=== PATIENT | male | born 1960 | race Caucasian/White ===

== ENCOUNTER 2018-08-07 18:41 | Inpatient (IN) | payer OTHER ==
[~2018-08-07] VITALS: Ht 167.6 cm; Wt 139.4 kg
[2018-08-07 19:29] LABS: BASOPHIL % 0.2 % (0-2)
[2018-08-07 19:30] LABS: RED CELL DISTRIBUTION WIDTH 17.2 % (11.5-14.5)
[2018-08-07 19:31] LABS: PLATELET COUNT 84 x10^3mcL (130-400)
[2018-08-07 19:41] LABS: ALKALINE PHOSPHATASE 113 U/L (46-116); ALT/SGPT 25 U/L (16-63); AST/SGOT 74 U/L (15-37); CALCIUM 7.9 mg/dL (8.5-10.1); CARBON DIOXIDE 23.1 mmol/L (21-32); CHLORIDE SERUM 96 mmol/L (98-107); CREATININE SERUM 1.5 mg/dL (0.7-1.3); GFR1 51 mL/min; GLUCOSE SERUM 89 mg/dL (74-106); POTASSIUM SERUM 4.1 mmol/L (3.5-5.1); SODIUM SERUM 129 mmol/L (136-145); TOTAL PROTEIN, SERUM 7.7 g/dL (6.4-8.2)
[2018-08-07 20:06] LABS: ALBUMIN 1.8 g/dL (3.4-5.0)
[2018-08-07 20:08] LABS: BILIRUBIN TOTAL 13.8 mg/dL (0.20-1.00)
[2018-08-07 20:17] LABS: UA SPECIFIC GRAVITY 1.025 (1.005-1.035); microscopic required? YES; urine erythrocyte NEGATIVE (NEGATIVE)
[2018-08-07 21:47] LABS: MAGNESIUM 2.1 mg/dL (1.8-2.4); PHOSPHOROUS 3.8 mg/dL (2.5-4.9)
[2018-08-07 21:54] LABS: T3 TOTAL 0.53 ng/mL
[2018-08-07 22:00] LABS: CHOLESTEROL/HDL RATIO 4.7
[2018-08-07 22:11] LABS: AMPHETAMINE QUAL UR NONE DETECTED (See below)
[2018-08-07 22:20] LABS: FREE T4 1.57 ng/dL (0.76-1.46); FREE THYROXINE INDEX 1.6 ug/dL (1.4-4.5); T4(THYROXINE) 4.2 ug/dL (4.7-13.3)
[2018-08-07 22:54] VITALS: BP 99/55
[2018-08-07 23:20] VITALS: BP 99/55
[2018-08-08] VITALS (10 sets, daily range): BP systolic 101–149; BP diastolic 47–84
[2018-08-08 05:39] LABS: BASOPHIL % 0 % (0-2); PLATELET COUNT 76 x10^3mcL (130-400); RED CELL DISTRIBUTION WIDTH 17.4 % (11.5-14.5)
[2018-08-08 05:56] LABS: CALCIUM 7.9 mg/dL (8.5-10.1); CARBON DIOXIDE 18.4 mmol/L (21-32); MAGNESIUM 2.2 mg/dL (1.8-2.4); PHOSPHOROUS 4.8 mg/dL (2.5-4.9); POTASSIUM SERUM 4.4 mmol/L (3.5-5.1)
[2018-08-09 03:21] VITALS: BP 109/72
[2018-08-09 05:19] LABS: BASOPHIL % 0.1 % (0-2)
[2018-08-09 05:24] LABS: PLATELET COUNT 68 x10^3mcL (130-400)
[2018-08-09 05:50] LABS: CALCIUM 8.2 mg/dL (8.5-10.1); CARBON DIOXIDE 17.8 mmol/L (21-32); CREATININE SERUM 2.9 mg/dL (0.7-1.3); MAGNESIUM 2.3 mg/dL (1.8-2.4); PHOSPHOROUS 6.5 mg/dL (2.5-4.9); POTASSIUM SERUM 4.9 mmol/L (3.5-5.1)
[2018-08-09 07:53] VITALS: BP 113/64
[2018-08-09 10:16] LABS: BILIRUBIN DIRECT 8.71 mg/dL (0.0-0.2)
[2018-08-09 10:20] LABS: ALBUMIN 1.7 g/dL (3.4-5.0)
[2018-08-09 10:21] LABS: BILIRUBIN TOTAL 12.2 mg/dL (0.20-1.00)
[2018-08-09 11:44] VITALS: BP 115/55
[2018-08-09 12:03] VITALS: BP 159/49
[2018-08-09 12:23] VITALS: Ht 167.6 cm; Wt 139.4 kg
[2018-08-09 14:36] VITALS: BP 83/40
[2018-08-09 15:44] VITALS: BP 79/42
== END 2018-08-09 22:13 | disposition expired | DRG 871 ==
LOC: ED 18:41 → IC 21:09
PROVIDERS: Emergency Medicine; ADMIT Internal Medicine
DX: A41.9 Sepsis, unspecified organism (principal); J18.9 Pneumonia, unspecified organism; J96.01 Acute respiratory failure with hypoxia; N17.0 Acute kidney failure with tubular necrosis; E43 Unspecified severe protein-calorie malnutrition; E87.1 Hypo-osmolality and hyponatremia; D68.9 Coagulation defect, unspecified; R18.8 Other ascites; R65.20 Severe sepsis without septic shock; K74.60 Unspecified cirrhosis of liver; D69.6 Thrombocytopenia, unspecified; D53.9 Nutritional anemia, unspecified; E83.51 Hypocalcemia; E66.01 Morbid (severe) obesity due to excess calories; Z68.39 Body mass index [BMI] 39.0-39.9, adult; Z53.29 Procedure and treatment not carried out because of patient's decision for other reasons; Z66 Do not resuscitate
CPT/HCPCS: 36556; 36600; 83880; 84439; A4628; C1751; J0456; J0696; J1720; J1940; J2060; J2270; J2543; J3490; J7030; J7620; Q0092